=== PATIENT | female | born 1980 | race Caucasian/White ===

== ENCOUNTER 2020-04-19 05:11 | Emergency (ER) | payer SELFPAY ==
[~2020-04-19] VITALS: Ht 175.3 cm; Wt 86.2 kg
--- NOTE | 2020-04-19 05:15 | NUR ---
ED Nurse Note: BROUGHT IN BY LETTY FOR MEDICAL CLEARANCE. PATIENT REPORTS PAIN TO LEFT PINKY AND BRUISING TO LEFT FACE. DENIES LOC. PATIENT AO4 WITH NO ACUTE DISTRESS. PATIENT STATES PAIN IS TOLERABLE AT THIS TIME; DENIES NEED FOR ANANALGESICS. ALL SAFETY MEASURES MET.
--- NOTE | 2020-04-19 05:24 | NUR ---
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
[2020-04-19 05:26] VITALS: BP 115/56
[2020-04-19] MEDS ORDERED: IBUPROFEN600 M1 ORAL (05:44)
--- NOTE | 2020-04-19 05:44 | NUR ---
ED Nurse Note: FINGER SPLINT APPLIED. PROVIDED PATIENT WITH ICE PACK
[2020-04-19 05:45] VITALS: BP 115/56
--- NOTE | 2020-04-19 05:47 | NUR ---
ER DISCHARGE NOTE: Patient is cleared to be discharged per ERMD, pt is aox4, on room air, with stable vital signs. pt was given dc and prescription instructions, pt was able to verbalize understanding, pt id band removed. pt is able to ambulate with steady gait. pt took all belongings. accompanied by sussy.
--- NOTE | 2020-04-19 07:17 | Diagnostic Imaging Report ---
EXAM: XR Left Hand Complete, 3 Views CLINICAL HISTORY: PAIN TECHNIQUE: Frontal, lateral and oblique views of the left hand. COMPARISON: None available. FINDINGS/ IMPRESSION: Evaluation is somewhat limited due to aberrant positioning. There is an obliquely oriented acute fracture involving the left fourth distal phalanx extending into the DIP joint, with mild associated soft tissue swelling. Slight displacement of dominant fracture fragments is noted. Avulsion injury can be considered. Recommend correlation with orthopedic evaluation. Follow-up radiographs can be obtained in 14 days to reevaluate this finding.
--- NOTE | 2020-04-23 07:06 | Emergency Room Report ---
History of Present Illness General Chief Complaint: Medical Clearance Source: Patient Present Illness HPI 39-year-old female presents for [facility] clearance. In police custody. States that she was injured during being arrested. Notes pain to her face and also to her left hand. Pain is dull, 6 out of 10, nonradiating. Denies LOC. No other aggravating relieving factors. Denies any other associated symptoms Allergies: Coded Allergies: No Known Allergies (Unverified , 04/19/20) COVID-19 Screening Contact w/high risk pt: No Experienced COVID-19 symptoms?: No COVID-19 Testing performed MENTAL HEALTH COUNSELOR: No Patient History Past Medical History: none Past Surgical History: none Pertinent Family History: none Social History: Denies: smoking, alcohol use, drug use Last Menstrual Period: 04/19/20 Now: No Immunizations: UTD Reviewed Nursing Documentation: PMH: Agreed; PSxH: Agreed Nursing Documentation-PMH Past Medical History: No Stated History Review of Systems All Other Systems: negative except mentioned in HPI Physical Exam Sp02 EP Interpretation: reviewed, normal General Appearance: no apparent distress, alert, GCS 15, non-toxic Head: normocephalic, other - abrasion to L maxilla. no crepitus or bruising Eyes: bilateral eye normal inspection, bilateral eye PERRL ENT: hearing grossly normal, normal pharynx, no angioedema, normal voice Neck: full range of motion, supple/symm/no masses Respiratory: chest non-tender, lungs clear, normal breath sounds, speaking full sentences Cardiovascular #1: regular rate, rhythm, no edema Cardiovascular #2: 2+ carotid (R), 2+ carotid (L), 2+ radial (R), 2+ radial (L), 2+ dorsalis pedis (R), 2+ dorsalis pedis (L) Gastrointestinal: normal bowel sounds, non tender, soft, non-distended, no guarding, no rebound Rectal: deferred Genitourinary: normal inspection, no CVA tenderness Musculoskeletal: back normal, normal range of motion, gait/station normal, tender - L 4th finger pain/swelling/bruising Neurologic: alert, motor strength/tone normal, oriented x3, sensory intact, responsive, speech normal Psychiatric: judgement/insight normal, memory normal, mood/affect normal, no suicidal/homicidal ideation Reflexes: 3+ bicep (R), 3+ bicep (L), 3+ tricep (R), 3+ tricep (L), 3+ knee (R), 3+ knee (L) Lymphatic: no adenopathy Procedures Splinting Splinting : Consent: Verbal Pre-Made Type: metal Pre-Proc Neuro Vasc Exam: normal Post-Proc Neuro Vasc Exam: normal Patient Tolerated: Well Complications: None Medical Decision Making Diagnostic Impression: Primary Impression: Finger fracture Qualified Codes: S62.665A - Nondisplaced fracture of distal phalanx of left ring finger, initial encounter for closed fracture Additional Impression: Medical clearance for incarceration ER Course Hospital Course 39-year-old female presents with abrasions to face, left hand pain status post arrested. In police custody Differential diagnoses include: Fracture, dislocation, sprain, contusion Clinical course Patient placed on stretcher. After initial history and physical, I ordered xrays of L hand. Patient declined pain meds. Refused any imaging of head and face Xrays prelim read shows fracture of the DIP on the left fourth finger. Discussed with patient. Placed in finger splint. Safe for discharge with close outpatient follow-up Diagnosis - finger fracture, medical clearance for incarceration Stable and discharged to police custody. apply ice, keep elevated. weight bear as tolerated. Followup with PMD. Return to ED if symptoms recur or worsen Other X-Ray Diagnostic Results Other X-Ray Diagnostic Results : X-Ray ordered: L hand # of Views/Limited Vs Complete: 3 View Indication: Pain EP Interpretation: Yes Interpretation: no dislocation, other - DIP fx L 4th finger Impression: Other - finger Electronically Signed by: Electronically signed by Wallace Ro MD Status: improved Disposition: HOME, SELF-CARE Condition: Stable Scripts Ibuprofen* (MOTRIN*) 600 Mg Tablet 600 MG ORAL Q8H PRN for FOR PAIN, #30 TAB 0 Refills Prov: Wallace Ro MD 04/19/20 [facility] Open 24 hour /7 days a week by Appointment Only [address] [facility] [id number] Departure Forms: Half-Way Clearance Patient Instructions: Finger Fracture, [id number] Wallace Ro MD Apr 23, 2020 07:06
== END 2020-04-19 05:45 | disposition home or self-care (01) ==
LOC: EMR 05:25
DX: S62.665A Nondisplaced fracture of distal phalanx of left ring finger, initial encounter for closed fracture (principal); S00.81XA Abrasion of other part of head, initial encounter; Z02.89 Encounter for other administrative examinations; Y35.893A Legal intervention involving other specified means, suspect injured, initial encounter; Y92.9 Unspecified place or not applicable
CPT/HCPCS: 99283